=== PATIENT | female | born 1950 | race Caucasian/White ===

== ENCOUNTER 2017-01-28 05:35 | Inpatient (IN) | payer OTHER ==
--- NOTE | 2017-01-09 12:36 | PAT Medication Instructions ---
Service Date Jan 09, 2017. Current Home Medication List Calcium Carbonate-Cholecalcife (Caltrate 600+D), 1 TAB PO BID Cyclobenzaprine Hcl (Flexeril), 5-10 MG PO TID PRN for PRN Dorzolamide Hcl-Timolol Maleat (Cosopt Oph), 1 DROPS OP BID Mrwgzhuicri-Uoasikuzfze-Yeu C- (Glucosamine Chondroitin), 1 TAB PO BID Hydrochlorothiazide (Hydrochlorothiazide), 1 TAB PO QAM Latanoprost (Xalatan 0.005% Oph Kelly), 1 DROPS OP HS Loperamide Hcl (Imodium), 2 MG PO PRN Meloxicam (Mobic), 15 MG PO QAM Modafinil (Provigil), 200 MG PO QAM Modafinil (Provigil), 100 MG PO NOON PRN for PRN Multivitamin (Multivitamin), 1 TAB PO QAM Potassium Ext Rel (Klor-Con), 20 MEQ PO QAM [Allergy Relief Otc], 1 TAB PO PRN Medication Instructions For Your Scheduled Surgery - Hold the following medications 2 weeks prior to surgery: Bhjiqzqziyg-Qgurgjkuhmy-Eco C- (Glucosamine Chondroitin), 1 TAB PO BID - Hold the following medications PER YOUR SURGEON'S INSTRUCTIONS: Meloxicam (Mobic), 15 MG PO QAM - Hold the following medications the morning of surgery: Calcium Carbonate-Cholecalcife (Caltrate 600+D), 1 TAB PO BID Cyclobenzaprine Hcl (Flexeril), 5-10 MG PO TID PRN for PRN Modafinil (Provigil), 200 MG PO QAM Modafinil (Provigil), 100 MG PO NOON PRN for PRN Loperamide Hcl (Imodium), 2 MG PO PRN Multivitamin (Multivitamin), 1 TAB PO QAM Potassium Ext Rel (Klor-Con), 20 MEQ PO QAM Hydrochlorothiazide (Hydrochlorothiazide), 1 TAB PO QAM [Allergy Relief Otc], 1 TAB PO PRN - Take the following medications the morning of surgery: Dorzolamide Hcl-Timolol Maleat (Cosopt Oph), 1 DROPS OP BID (AND BRING WITH YOU THE MORNING OF THE SURGERY) - Take the following medications as scheduled the night before surgery: Latanoprost (Xalatan 0.005% Oph Kelly), 1 DROPS OP HS (AND BRING WITH YOU THE MORNING OF THE SURGERY) Dorzolamide Hcl-Timolol Maleat (Cosopt Oph), 1 DROPS OP BID Calcium Carbonate-Cholecalcife (Caltrate 600+D), 1 TAB PO BID [Allergy Relief Otc], 1 TAB PO PRN (IF NEEDED) If you have any questions please call us at [phone] or [phone] or [phone]
--- NOTE | 2017-01-09 13:24 | DIAGNOSTIC IMAGING REPORT ---
CHEST PREADMISSION(PA/LAT) CLINICAL HISTORY: PAT preoperative evaluation COMPARISON STUDY: No previous studies for comparison. FINDINGS: The bones soft tissues and hemidiaphragms are normal. The cardiomediastinal silhouette is normal. The lungs are clear. The pulmonary vasculature is normal. IMPRESSION: Negative chest. The above report was generated using voice recognition software. It may contain grammatical, syntax or spelling errors. Electronically signed by: Dawson Garcia M.D. 01/09/2017 1:23 PM Dictated Date/Time: 01/09/2017 1:23 PM
[2017-01-09 13:27] LABS: BASO % 0.9 %; BASO ABS # 0.06 K/uL (0-0.2); COMPLETE YES; HEMATOCRIT 40.6 % (37-47); IG% 0.3 %; LYMPH % 26.1 %; LYMPH ABS # 1.72 K/uL (1.2-3.4); MEAN CELL VOLUME 91.2 fL (80-100); MEAN CORPUSCULAR HEMOGLOBIN 30.8 pg (25-34); MEAN CORPUSCULAR HGB CONC 33.7 g/dl (32-36); MEAN PLATELET VOLUME 9.2 fL (7.4-10.4); MONO % 8.6 %; NEUT % 62.1 %; PLATELET COUNT 351 K/uL (130-400); RED BLOOD COUNT 4.45 M/uL (4.2-5.4)
[2017-01-09 13:38] LABS: URINE APPEARANCE CLEAR (CLEAR); URINE BILIRUBIN NEG (NEG); URINE COLOR YELLOW; URINE NITRITE NEG (NEG); URINE PH 6.5 (4.5-7.5); UROBILINOGEN NEG (NEG); ZZUR CULT IF INDIC CLEAN CATCH YES
[2017-01-09 13:48] LABS: BUN/CREATININE RATIO 11.4 (10-20); CALCIUM 9.6 mg/dl (8.5-10.1); CREATININE 0.65 mg/dl (0.60-1.20); POTASSIUM 3.9 mmol/L (3.5-5.1)
[2017-01-09 13:52] LABS: MANUAL MICROSCOPIC REQUIRED? NO; REVIEW REQ? NO
[~2017-01-28] VITALS: Ht 160 cm; Wt 77.6 kg
[2017-01-28] VITALS (10 sets, daily range): BP systolic 103–142; BP diastolic 67–89; PULSE 70–85; TEMP 36.3–36.6; O2SAT 96–100; Ht 160 cm; Wt 77.6 kg
[~2017-01-28 05:35] MED LIST: ALLERGY RELIEF OTC PO; CALC-354 PO; CYCL5TAB PO; DORZ1SOL6 OP; GLUCTAB7 PO; HYDR12.55 PO; IMD/2 PO; LATA0.5S OP; MELO7.5T5 PO; MODA100T17 PO; MODA1TAB PO; MULT-506 PO; POTA20TA16 PO
[2017-01-28] MEDS ORDERED: CEFAZOLIN 1000MG/55 ML D5W IV SCH (06:00)
[2017-01-28] MEDS ORDERED: LACTATED RINGER'S 1000ML 1,000 ML IV SCH ×2 (06:00→07:39)
[2017-01-28] MEDS ORDERED: FLUT0.15 INH (06:01)
[2017-01-28] MEDS ORDERED: ACET1TAB84 PO (06:14)
[2017-01-28] MEDS ORDERED: ATROPINE SULFATE 0.1 MG/ML 5ML SYR IV PRN (06:45)
[2017-01-28] MEDS ORDERED: PROMETHAZINE HCL INJ 12.5 MG in SODIUM CHLORIDE 0.9% 50ML 50 ML IV PRN ×2 (06:45→10:15)
[2017-01-28] MEDS ORDERED: EpHEDrine SULFATE INJ 50 MG/ML AMP IV PRN (06:45)
[2017-01-28] MEDS ORDERED: ONDANSETRON INJ 2 MG/ML 2 ML VIAL IV PRN ×2 (06:45→10:15)
[2017-01-28] MEDS ORDERED: FENTANYL CITRATE INJ 50 MCG/1 ML 2 ML VIAL IV PRN (06:45)
[2017-01-28] MEDS ORDERED: HYDROmorphone INJ 1 MG/ML SYR IV PRN (06:45)
[2017-01-28] MEDS ORDERED: GLYCOPYRROLATE INJ 0.2 MG/ML VIAL ONE (06:53)
[2017-01-28] MEDS ORDERED: MIDAZOLAM HCL 1 MG/ML 2ML VIAL ONE (06:53)
[2017-01-28] MEDS ORDERED: PROPOFOL IV EMULSION 10 MG/ML 20 ML VIAL IV ONE (06:53)
[2017-01-28] MEDS ORDERED: ROCURONIUM BROMIDE 10 MG/ML 5 ML VIAL IV ONE (06:53)
[2017-01-28] MEDS ORDERED: LIDOCAINE HCL 2% 2 ML VIAL (20MG/ML) ONE (06:53)
[2017-01-28] MEDS ORDERED: NEOSTIGMINE METHYLSULFATE 1 MG/ML 10ML VIAL ONE (06:53)
[2017-01-28] MEDS ORDERED: FENTANYL CITRATE INJ 50 MCG/1 ML 2 ML VIAL ONE (06:53)
[2017-01-28] MEDS ORDERED: DEXAMETHASONE SOD INJ 4 MG/ML VIAL ONE (06:53)
[2017-01-28] MEDS ORDERED: HYDROmorphone INJ 2 MG/ML SYR/VIAL ONE (06:54)
[2017-01-28] MEDS ORDERED: BACITRACIN 50000 UNIT VIAL ONE (06:58)
[2017-01-28] MEDS ORDERED: BUPIVACAINE/EPINEPHRINE 0.5% MPF 1:200,000 30 ML VIAL ONE (06:58)
[2017-01-28] MEDS ORDERED: CLINDAMYCIN 600 MG/54 ML D5W IV ONE (06:59)
--- NOTE | 2017-01-28 07:26 | History & Physical Bridge Note ---
H&P Re-Evaluation Bridge Note: I have examined the patient, reviewed the History & Physical and in the interval since the performance of the History & Physical I have noted the following changes of clinical significance: No changes noted
--- NOTE | 2017-01-28 07:28 | History and Physical ---
History & Physical Date Jan 28, 2017. Chief Complaint Back and leg pain History of Present Illness The patient is a 66 year old female with complaints of back and leg pain Additional History Hepatic Disease: No Endocrine Disorder: No Kidney Disease: No Hypertension: Yes Heart Disease: No Bleeding Tendencies: No Infectious Diseases: No Allergies Coded Allergies: Penicillins (Verified Allergy, Unknown, RASH, 01/28/17) Home Medications Scheduled Calcium Carbonate-Cholecalcife (Caltrate 600+D), 1 TAB PO BID Dorzolamide Hcl-Timolol Maleat (Cosopt Oph), 1 DROPS OP BID Fluticasone Propionate (Nasal) (Flonase Allergy Relief), 1 SPRAY INH DAILY Whnhtfcmedw-Ygnofmxdgqj-Vik C- (Glucosamine Chondroitin), 1 TAB PO BID Hydrochlorothiazide (Hydrochlorothiazide), 1 TAB PO QAM Latanoprost (Xalatan 0.005% Oph Kelly), 1 DROPS OP HS Loperamide Hcl (Imodium), 2 MG PO PRN Meloxicam (Mobic), 15 MG PO QAM Modafinil (Provigil), 200 MG PO QAM Multivitamin (Multivitamin), 1 TAB PO QAM Potassium Ext Rel (Klor-Con), 20 MEQ PO QAM [Allergy Relief Otc], 1 TAB PO PRN Scheduled PRN Acetaminophen (Tylenol Arthritis Ext Rel), 650 MG PO Q8H PRN for Pain Cyclobenzaprine Hcl (Flexeril), 5-10 MG PO TID PRN for PRN Modafinil (Provigil), 100 MG PO NOON PRN for PRN Physical Examination Skin: warm/dry, no rash Eyes: normal inspection, EOMI, sclerae normal ENT: normal ENT inspection, pharynx normal Head: normocephalic, atraumatic Neck: supple, no adenopathy, trachea midline Respiratory/Chest: lungs clear, normal breath sounds, no respiratory distress Cardiovascular: regular rate, rhythm, no edema, no murmur Abdomen / GI: normal bowel sounds, non tender Back: normal inspection Extremities: normal inspection, normal range of motion Neurologic/Psych: no motor/sensory deficits, alert, normal reflexes, oriented x 3 Diagnosis Lumbar spinal stenosis Plan of Treatment Lumbar decompression fusion L4 to S1
[2017-01-28] MEDS ORDERED: SCOPOLAMINE 1.5 MG TDSY TD ONE (07:31)
[2017-01-28] MEDS ORDERED: SCOPOLAMINE 1.5 MG TDSY TD SCH (07:45)
[2017-01-28] MEDS ORDERED: NURSING VERBAL MED ORDER ONE ×2 (07:45→14:00)
[2017-01-28] MEDS ORDERED: EpHEDrine SULFATE 50MG/5ML SYR ONE (08:50)
[2017-01-28] MEDS ORDERED: PHENYLEPHRINE 100MCG/ML 5ML SYR ONE (08:50)
[2017-01-28] MEDS ORDERED: FLOSEAL HEMOSTATIC MATRIX 10ML TOP ONE (10:02)
[2017-01-28] MEDS ORDERED: SODIUM CHLORIDE 0.9% 1000ML 1,000 ML IV SCH (10:03)
--- NOTE | 2017-01-28 10:11 | [facility] Operative Report ---
Operative Report Operative Date Jan 28, 2017. Pre-Operative Diagnosis Lumbar spinal stenosis Post-Operative Diagnosis Lumbar spinal stenosis Procedure(s) Performed #1 lumbar decompression medial facetectomies foraminotomies L3 4 L4 5 L5-S1. #2 posterior spinal fusion L4 5 L5-S1. #3 placement posterior segmental instrumentation L4 5 L5-S1. #4 interbody fusion L4 5. #5 placement peek Cage 14 x 26 mm at L4 5 #6 placement of locally harvested morcellized autograft posterior gutters. #7 placement of ostial amp bone graft in the interbody space and posterior lateral gutters. Surgeon Dr. Perez Love [facility] Agent Surgeon(s) Naomi Long PA-C Estimated Blood Loss 150mL Findings Severe spinal stenosis Specimens None per surgeon Description of Procedure Patient was met with preoperatively case discussed all questions addressed. After informed consent patient was taken operative suite and intubated and placed in a prone position the [place] table top Jed frame. All bony prominences well-padded eyes inspected to ensure no external pressure. Lumbar spine was then prepped and draped in the normal sterile fashion. Sharp dissection with the assistance of Bovie cautery was performed onto an exposing the lamina and transverse processes of L4 L5 and the sacral alar bilaterally. From a caudal to cephalad fashion complete laminectomy of L5 L4 and partial laminectomy of L3 was performed addressing severe central lateral recess and foraminal stenosis. Pedicle screws were then placed in L4 5 and S1 levels bilaterally. Probably size frances was then placed. Through a transforaminal approach on the right complete discectomy of L4 5 was performed and plate created to subcortical bleeding bone and a 14 x 26 mm peek cage filled with ostial amp tapped in position. The rods were then locked and final position bilaterally. Transverse processes of L4-L5 and the sacral alar were then burred to subcortical bleeding bone. Ostial amp locally harvested morcellized autograft was placed and posterior gutters. 15 round ELISA drain inserted. Incision closed with 1 Vicryl fascia 2-0 Vicryl subcutaneous tediously 4 Monocryl for final skin closure Steri-Strip sterile dressing was placed. Patient awakened taken PACU stable condition. Please note Naomi Juarez was present at the entire procedure involved in patient positioning complex portions of the surgery and final skin closure. I attest to the content of the Intraoperative Record and any orders documented therein. Any exceptions are noted below.
[2017-01-28] MEDS ORDERED: DO NOT ADMINISTER FLU VACCINE PRN ×3 (10:15)
[2017-01-28] MEDS ORDERED: ALUMINUM/MAGNESIUM SUSP 30 ML UDC PO PRN (10:15)
[2017-01-28] MEDS ORDERED: BISACODYL 10 MG SUPP PR PRN (10:15)
[2017-01-28] MEDS ORDERED: hydrOXYzine HCL 25 MG TAB PO PRN (10:15)
[2017-01-28] MEDS ORDERED: DO NOT ADMINISTER PNEUMOCOCCAL VACCINE PRN ×2 (10:15)
[2017-01-28] MEDS ORDERED: ACETAMINOPHEN IV 100 ML IV PRN (10:15)
[2017-01-28] MEDS ORDERED: ACETAMINOPHEN 500 MG TAB PO PRN (10:15)
[2017-01-28] MEDS ORDERED: SOD PHOSPHATE/SOD BIPHOSPHATE ENEMA 132 ML BTL PR PRN (10:15)
[2017-01-28] MEDS ORDERED: LORAZEPAM 0.5 MG TAB PO PRN (10:15)
[2017-01-28] MEDS ORDERED: NALOXONE HCL 0.4 MG/1 ML VIAL/CARP IV PRN ×2 (10:15)
[2017-01-28] MEDS ORDERED: METOCLOPRAMIDE HCL INJ 5 MG/ML 2 ML VIAL IV PRN (10:15)
[2017-01-28] MEDS ORDERED: LORAZEPAM INJ 0.5 MG in SYRINGE 0.75 ML IV PRN (10:15)
[2017-01-28] MEDS ORDERED: MAGNESIUM HYDROXIDE SUSP 30 ML UDC PO PRN (10:15)
[2017-01-28] MEDS ORDERED: FAMOTIDINE 20 MG TAB PO PRN (10:15)
--- NOTE | 2017-01-28 10:25 | DIAGNOSTIC IMAGING REPORT ---
INTRAOPERATIVE RADIOGRAPHS CLINICAL HISTORY: L4-S1 spinal fusion. Fluoroscopy time: 21 seconds. FINDINGS: 2 spot fluoroscopic views of the lumbar spine are presented. There is evidence of discectomy at L4-L5 with laminectomy and posterior fusion from L4 -S1. Interpedicular screws are present at all levels. The orthopedic hardware appears intact. IMPRESSION: Intraoperative images from L4 -S1 spinal fusion as above. Electronically signed by: Erasmo Guajardo M.D. 01/28/2017 10:23 AM Dictated Date/Time: 01/28/2017 10:23 AM
[2017-01-28] MEDS ORDERED: HYDROmorphone HCL 0.5MG/ML 50 ML CASSETTE ONE (10:31)
--- NOTE | 2017-01-28 11:13 | Anesthesiology Progress Note ---
Anesthesia Post Op Note Date & Time Jan 28, 2017 at 11:12 Vital Signs Pain Intensity: 3 Vital Signs Past 12 Hours Date Time Temp Pulse Resp B/P (MAP) Pulse Ox O2 Delivery O2 Flow Rate FiO2 01/28/17 11:06 36.1 65 18 133/83 100 Nasal Cannula 4 01/28/17 10:24 36.2 86 20 125/77 96 Mask 5 01/28/17 06:02 36.4 79 22 142/89 97 Room Air Notes Mental Status: alert / awake / arousable, participated in evaluation Pt Amnestic to Procedure: Yes Nausea / Vomiting: adequately controlled Pain: adequately controlled Airway Patency, RR, SpO2: stable & adequate BP & HR: stable & adequate Hydration State: stable & adequate Anesthetic Complications: no major complications apparent
[2017-01-28] MEDS: HYDROmorphone HCL 0.5MG/ML 50 ML CASSETTE IV PRN ×3 (12:26→19:23)
[2017-01-28] MEDS: LACTATED RINGER'S 1000ML 1,000 ML IV SCH ×3 (13:47→21:23)
[2017-01-28] MEDS: DEXAMETHASONE INJ 6 MG in SYRINGE 0 ML IV SCH ×2 (15:47→23:29)
[2017-01-28] MEDS: CLINDAMYCIN IV 600 MG in DEXTROSE 5% 50ML 50 ML IV SCH ×2 (15:47→23:29)
[2017-01-28] MEDS: CHECK SCOPOLAMINE PATCH PLACEMENT SCH ×2 (15:48→23:30)
[2017-01-28] MEDS: DOCUSATE SODIUM/SENNA 50/8.6MG TAB PO SCH (20:15)
[2017-01-28] MEDS: DORZOLAMIDE/TIMOLOL 22.3/6.8MG/ML 10 ML BTL OP SCH (20:16)
[2017-01-28] MEDS: LATANOPROST 0.005% OP SOLN 2.5 ML BTL OP SCH (20:16)
[2017-01-29 02:50] VITALS: BP 115/73; PULSE 87; TEMP 36.6; O2SAT 95
[2017-01-29] MEDS ORDERED: DC PCA SCH (06:00)
[2017-01-29] MEDS ORDERED: HYDROmorphone INJ 0.5 MG/0.5 ML SYR IV PRN (06:00)
[2017-01-29] MEDS ORDERED: HYDROmorphone INJ 1 MG/ML SYR IV PRN (06:00)
[2017-01-29] MEDS ORDERED: NURSING DECISION MEDICATION ORDER SCH (06:15)
[2017-01-29 06:26] LABS: BASO % 0.1 %; BASO ABS # 0.01 K/uL (0-0.2); COMPLETE YES; HEMATOCRIT 35.1 % (37-47); IG% 0.3 %; LYMPH % 6.4 %; LYMPH ABS # 1.18 K/uL (1.2-3.4); MEAN CELL VOLUME 91.4 fL (80-100); MEAN CORPUSCULAR HEMOGLOBIN 30.7 pg (25-34); MEAN CORPUSCULAR HGB CONC 33.6 g/dl (32-36); MONO % 3.1 %; NEUT % 90.1 %; PLATELET COUNT 310 K/uL (130-400); RED BLOOD COUNT 3.84 M/uL (4.2-5.4); WHITE BLOOD COUNT 18.49 K/uL (4.8-10.8)
[2017-01-29 06:59] LABS: BUN/CREATININE RATIO 12.5 (10-20); CALCIUM 8.6 mg/dl (8.5-10.1); CREATININE 0.62 mg/dl (0.60-1.20); POTASSIUM 4.1 mmol/L (3.5-5.1)
[2017-01-29] MEDS: DEXAMETHASONE INJ 6 MG in SYRINGE 0 ML IV SCH (07:04)
[2017-01-29] MEDS ORDERED: RXC5 PO (07:37)
--- NOTE | 2017-01-29 07:38 | Discharge Instructions ---
Discharge Instructions Date of Service Jan 29, 2017. Admission Reason for Admission: Lumbar Spinal Stenosis Discharge Discharge Diagnosis / Problem: lumbar spinal stenosis Discharge Goals Goal(s): Improve function Activity Recommendations Activity Limitations: per Instructions/Follow-up section . Instructions / Follow-Up Instructions / Follow-Up ACTIVITY RECOMMENDATIONS: SELF CARE INSTRUCTIONS AFTER THORACIC/LUMBAR FUSIONS 1. You may walk to your tolerance. It is good exercise for your legs and back. Expect some back and intermittent leg aches and pains. 2. You may perform "counter-top" level activities (make a sandwich, idalia with a project, etc.). 3. No bending or lifting of more than 10 pounds or back twisting of any nature (roll like a log when turning in bed). 4. You may ride in a car for 20-30 minutes at a time. No driving until after your first visit with your doctor. 5. Frequent changes of position and restricting sitting to 30 minutes at a time will help limit the amount of back spasms and stiffness you may experience. 6. You may discontinue the use of ambulatory aids (cane, crutches, etc.) once your strength and confidence allow. 7. You may bushing and broach operator the shower and let water strike your incision when you arrive home at least once daily. Do not take a tub bath, sit in a hot tub or go into a swimming pool until after your first recheck in the office. SPECIAL CARE INSTRUCTIONS: VERY IMPORTANT TO READ AND REVIEW A. Your surgical incision has been closed with a cosmetic suture under the skin that will dissolve in about 6 weeks. In 14 days, you can use a pair of clean scissors and cut the suture that is left outside of the skin at the ends of your incision. 1. The small skin tapes can be removed 7 days after surgery if they have not fallen off by that point. 2. You may keep the wound open to air as much as possible to promote healing after post-op day number 5 unless told otherwise by your doctor. 3. If you think the wound looks like it is becoming infected (redness or worsening drainage) and/or you are experiencing fever, chill or worsening back pain and muscle spasms, contact the office so that we may evaluate you as soon as possible. B. Complications are uncommon, but please contact us if you have any signs or symptoms of: 1. wound infection (fever higher than 102.5 degrees F, redness, separation of wound, drainage, or increasing pain from the incision) 2. blood clots in legs (pain, swelling, redness and warmth in legs) 3. urinary tract infection (fever higher than 102.5 degrees F, burning upon urination or increased frequency of urination) 4. nerve problems (inability to walk on your toes or heels, numbness, loss of bowel or bladder control) 5. any other symptoms that concern you C. Please call the office at if you have any concerns or questions about your operation or recovery. D. No smoking! Smoking drastically decreases the chance of a solid fusion. E. Do not take any anti-inflammatory medications (Indocin, Advil, Motrin, Aspirin, Naprosyn, etc.) as these may inhibit the chance of a solid fusion. Tylenol is okay to take for pain. MANAGING PAIN AFTER SPINAL SURGERY 1. Narcotic medication is intended for short-term use and will be provided for surgical pain. Surgical pain usually lasts for a period of 4-6 weeks. Narcotic medication includes Percocet, Vicodin, Darvocet, Tylenol #3 or Lortab. 2. Longer-term pain is more appropriately treated with non-narcotic medication such as Tylenol ES. 3. Muscle spasm is not appropriately treated with narcotics. Muscle relaxers such as Soma, Flexeril or Skelaxin can be used along with Tylenol ES. 4. Remember that we all live with some "aches and pains". This is not unusual or uncommon after an injury or as we get older. a. Back pain is expected and may include muscle spasms for 4 to 6 weeks after surgery. The pain should gradually improve. If the pain worsens for no apparent reason, please contact the office. b. Intermittent leg pain may also be experienced and should not be concerned about unless it worsens for no apparent reason. If so, please contact the office. 5. We will provide appropriate medication within the normal guidelines of their prescribed use. We will also be very cautious and aware of potential abuse and extended duration of patients' medication needs. a. Pain medications are for your comfort and to assist with sleep and rest so that the tissue can heal. They are not provided in order to return to normal activity and should not be used through the day. To do so or worsening pain at night can result from ongoing tissue damage and development of tolerance to the prescribed medicine. 6. Please allow 2-3 days to process refills. Prescriptions will not be mailed but must be picked up at the office. FOLLOW UP VISIT: Keep your scheduled follow-up appointment. Any questions, please call the office at . Current Hospital Diet Patient's current hospital diet: Regular Diet Discharge Diet Recommended Diet: Regular Diet Procedures Procedures Performed: #1 lumbar decompression medial facetectomies foraminotomies L3 4 L4 5 L5-S1. #2 posterior spinal fusion L4 5 L5-S1. #3 placement posterior segmental instrumentation L4 5 L5-S1. #4 interbody fusion L4 5. #5 placement peek Cage 14 x 26 mm at L4 5 #6 placement of locally harvested morcellized autograft posterior gutters. #7 placement of ostial amp bone graft in the interbody space and posterior lateral gutters. Pending Studies Studies pending at discharge: no Medical Emergencies . Who to Call and When: Medical Emergencies: If at any time you feel your situation is an emergency, please call 911 immediately. . Non-Emergent Contact Non-Emergency issues call your: Primary Care Provider . "Provider Documentation" section prepared by Perez Love. . VTE Core Measure Inpt VTE Proph given/why not?: Lee Durand, SCD's
[2017-01-29] MEDS: CHECK SCOPOLAMINE PATCH PLACEMENT SCH ×3 (07:57→23:05)
[2017-01-29 08:05] VITALS: BP 121/77; PULSE 72; TEMP 36.5; O2SAT 98
[2017-01-29] MEDS: FLUTICASONE PROPIONATE NA SPR 16 GM BTL SCH (08:50)
[2017-01-29] MEDS: DORZOLAMIDE/TIMOLOL 22.3/6.8MG/ML 10 ML BTL OP SCH ×2 (08:50→21:05)
[2017-01-29] MEDS: POTASSIUM CHLORIDE 20 MEQ TABCR PO SCH (08:51)
[2017-01-29] MEDS: MODAFINIL 100 MG TAB PO SCH (08:53)
[2017-01-29] MEDS: OXYCODONE HCL IR 5 MG TAB (IMMEDIATE RELEASE) PO PRN ×3 (09:54→21:09)
[2017-01-29 11:10] VITALS: BP 123/74; PULSE 77; TEMP 36.5; O2SAT 97
[2017-01-29] MEDS ORDERED: MODAFINIL 100 MG TAB PO PRN (12:00)
--- NOTE | 2017-01-29 13:34 | Progress Note ---
Progress Note Date of Service Jan 29, 2017. Progress Note Back pain is controlled. Leg pain is markedly improved. Patient has no complaints at this time. Vital signs are stable ELISA drain decreasing appropriately. On exam she is interior bedside has excellent strength testing. Assessment status post lumbar decompression fusion per plan at this time will continue physical therapy advance her bowel regimen consider home tomorrow.
[2017-01-29 14:58] VITALS: BP 130/76; PULSE 92; O2SAT 99
[2017-01-29 15:17] VITALS: BP 104/66; PULSE 80; TEMP 36.5; O2SAT 99
[2017-01-29] MEDS: DOCUSATE SODIUM/SENNA 50/8.6MG TAB PO SCH (21:05)
[2017-01-29] MEDS: LATANOPROST 0.005% OP SOLN 2.5 ML BTL OP SCH (21:05)
[2017-01-29 22:51] VITALS: BP 115/76; PULSE 80; TEMP 36.7; O2SAT 97
[2017-01-30] MEDS: OXYCODONE HCL IR 5 MG TAB (IMMEDIATE RELEASE) PO PRN ×4 (04:13→20:39)
[2017-01-30] MEDS: POLYETHYLENE (MIRALAX) 17 GM PACK PO SCH ×4 (05:55→23:32)
[2017-01-30 07:16] VITALS: BP 125/73; PULSE 76; TEMP 36.4; O2SAT 97
[2017-01-30] MEDS: CHECK SCOPOLAMINE PATCH PLACEMENT SCH ×2 (07:47→13:20)
[2017-01-30] MEDS: FLUTICASONE PROPIONATE NA SPR 16 GM BTL SCH (08:52)
[2017-01-30] MEDS: DORZOLAMIDE/TIMOLOL 22.3/6.8MG/ML 10 ML BTL OP SCH ×2 (08:52→20:38)
[2017-01-30] MEDS: POTASSIUM CHLORIDE 20 MEQ TABCR PO SCH (08:53)
[2017-01-30] MEDS: MODAFINIL 100 MG TAB PO SCH (08:59)
--- NOTE | 2017-01-30 12:23 | Progress Note ---
Progress Note Date of Service Jan 30, 2017. Progress Note Back pain is controlled leg pain markedly improved. Vital signs stable. ELISA drain decreasing appropriate. On exam she is good strength testing appears comfortable. Assessment status post lumbar decompression fusion replant this time we anticipate possible home tomorrow.
[2017-01-30] MEDS ORDERED: KETOROLAC TROMETHAMINE 15 MG/ML VIAL IV. PRN (12:30)
[2017-01-30] MEDS ORDERED: NURSING VERBAL MED ORDER ONE (13:30)
[2017-01-30 15:34] VITALS: BP 122/78; PULSE 89; TEMP 36.5; O2SAT 99
[2017-01-30] MEDS: LATANOPROST 0.005% OP SOLN 2.5 ML BTL OP SCH (20:38)
[2017-01-30] MEDS: DOCUSATE SODIUM/SENNA 50/8.6MG TAB PO SCH (20:39)
[2017-01-30 23:08] VITALS: BP 93/54; PULSE 91; TEMP 37; O2SAT 95
[2017-01-31] MEDS: POLYETHYLENE (MIRALAX) 17 GM PACK PO SCH (05:52)
[2017-01-31] MEDS: OXYCODONE HCL IR 5 MG TAB (IMMEDIATE RELEASE) PO PRN ×2 (05:56→10:29)
[2017-01-31 07:39] VITALS: BP 99/66; PULSE 93; TEMP 36.8; O2SAT 95
[2017-01-31] MEDS: FLUTICASONE PROPIONATE NA SPR 16 GM BTL SCH (08:54)
[2017-01-31] MEDS: DORZOLAMIDE/TIMOLOL 22.3/6.8MG/ML 10 ML BTL OP SCH (08:55)
[2017-01-31] MEDS: MODAFINIL 100 MG TAB PO SCH (08:56)
[2017-01-31] MEDS: POTASSIUM CHLORIDE 20 MEQ TABCR PO SCH (08:57)
[2017-01-31 10:44] VITALS: BP 99/66; PULSE 93; TEMP 36.8; O2SAT 95
--- NOTE | 2017-02-03 13:33 | Discharge Summary ---
Orthopedic Discharge Summary Admission Date/Reason Jan 28, 2017 at 10:06 Lumbar Spinal Stenosis. Discharge Date/Disposition Jan 31, 2017 Home Diagnosis Principal Diagnosis: Lumbar spinal stenosis Procedure(s) Performed Posterior lumbar decompression/fusion L4-S1 Medication Reconciliation New Medications: Oxycodone HCl (Oxycodone HCl) 5 Mg Tab 5-10 MG PO Q4H PRN for Moderate - severe pain for 30 Days, #60 TAB Continued Medications: Acetaminophen (Tylenol Arthritis Ext Rel) 650 Mg Cplt 650 MG PO Q8H PRN for Pain, CAP Calcium Carbonate-Cholecalcife (Caltrate 600+D) 1 Tab Tab 1 TAB PO BID Cyclobenzaprine Hcl (Flexeril) 5 Mg Tab 5-10 MG PO TID PRN for PRN, TAB PRN Dorzolamide Hcl-Timolol Maleat (Cosopt Oph) 1 Kelly Kelly 1 DROPS OP BID, #10 ML 3 Refills Fluticasone Propionate (Nasal) (Flonase Allergy Relief) 50 Mcg/Act Spr 1 SPRAY INH DAILY Nzeexjxmkds-Yaytqopfjkx-Zbw C- (Glucosamine Chondroitin) 1 Tab Tab 1 TAB PO BID Hydrochlorothiazide (Hydrochlorothiazide) 12.5 Mg Tab 1 TAB PO QAM for 90 Days, #90 TAB 3 Refills Latanoprost (Xalatan 0.005% Oph Kelly) 0.005 % Kelly 1 DROPS OP HS, #2.5 ML 3 Refills Loperamide Hcl (Imodium) 2 Mg Cap 2 MG PO PRN, CAP Modafinil (Provigil) 200 Mg Tab 200 MG PO QAM, TAB Modafinil (Provigil) 100 Mg Tab 100 MG PO NOON PRN for PRN, TAB Multivitamin (Multivitamin) Tab 1 TAB PO QAM, TAB Potassium Ext Rel (Klor-Con) 20 Meq Tabcr 20 MEQ PO QAM, TAB [Allergy Relief Otc] () 1 TAB PO PRN Discontinued Medications: Meloxicam (Mobic) 7.5 Mg Tab 15 MG PO QAM, TAB Admission Physical Exam As per Admitting History & Physical. Hospital Course Pt had an uneventful hospital course. Lab values were stable. Pain controlled. She progressed nicely with physical therapy. She was discharged home on POD #3 Discharge Instructions ACTIVITY RECOMMENDATIONS: SELF CARE INSTRUCTIONS AFTER THORACIC/LUMBAR FUSIONS 1. You may walk to your tolerance. It is good exercise for your legs and back. Expect some back and intermittent leg aches and pains. 2. You may perform "counter-top" level activities (make a sandwich, idalia with a project, etc.). 3. No bending or lifting of more than 10 pounds or back twisting of any nature (roll like a log when turning in bed). 4. You may ride in a car for 20-30 minutes at a time. No driving until after your first visit with your doctor. 5. Frequent changes of position and restricting sitting to 30 minutes at a time will help limit the amount of back spasms and stiffness you may experience. 6. You may discontinue the use of ambulatory aids (cane, crutches, etc.) once your strength and confidence allow. 7. You may manager linux the shower and let water strike your incision when you arrive home at least once daily. Do not take a tub bath, sit in a hot tub or go into a swimming pool until after your first recheck in the office. SPECIAL CARE INSTRUCTIONS: VERY IMPORTANT TO READ AND REVIEW A. Your surgical incision has been closed with a cosmetic suture under the skin that will dissolve in about 6 weeks. In 14 days, you can use a pair of clean scissors and cut the suture that is left outside of the skin at the ends of your incision. 1. The small skin tapes can be removed 7 days after surgery if they have not fallen off by that point. 2. You may keep the wound open to air as much as possible to promote healing after post-op day number 5 unless told otherwise by your doctor. 3. If you think the wound looks like it is becoming infected (redness or worsening drainage) and/or you are experiencing fever, chill or worsening back pain and muscle spasms, contact the office so that we may evaluate you as soon as possible. B. Complications are uncommon, but please contact us if you have any signs or symptoms of: 1. wound infection (fever higher than 102.5 degrees F, redness, separation of wound, drainage, or increasing pain from the incision) 2. blood clots in legs (pain, swelling, redness and warmth in legs) 3. urinary tract infection (fever higher than 102.5 degrees F, burning upon urination or increased frequency of urination) 4. nerve problems (inability to walk on your toes or heels, numbness, loss of bowel or bladder control) 5. any other symptoms that concern you C. Please call the office at if you have any concerns or questions about your operation or recovery. D. No smoking! Smoking drastically decreases the chance of a solid fusion. E. Do not take any anti-inflammatory medications (Indocin, Advil, Motrin, Aspirin, Naprosyn, etc.) as these may inhibit the chance of a solid fusion. Tylenol is okay to take for pain. MANAGING PAIN AFTER SPINAL SURGERY 1. Narcotic medication is intended for short-term use and will be provided for surgical pain. Surgical pain usually lasts for a period of 4-6 weeks. Narcotic medication includes Percocet, Vicodin, Darvocet, Tylenol #3 or Lortab. 2. Longer-term pain is more appropriately treated with non-narcotic medication such as Tylenol ES. 3. Muscle spasm is not appropriately treated with narcotics. Muscle relaxers such as Soma, Flexeril or Skelaxin can be used along with Tylenol ES. 4. Remember that we all live with some "aches and pains". This is not unusual or uncommon after an injury or as we get older. a. Back pain is expected and may include muscle spasms for 4 to 6 weeks after surgery. The pain should gradually improve. If the pain worsens for no apparent reason, please contact the office. b. Intermittent leg pain may also be experienced and should not be concerned about unless it worsens for no apparent reason. If so, please contact the office. 5. We will provide appropriate medication within the normal guidelines of their prescribed use. We will also be very cautious and aware of potential abuse and extended duration of patients' medication needs. a. Pain medications are for your comfort and to assist with sleep and rest so that the tissue can heal. They are not provided in order to return to normal activity and should not be used through the day. To do so or worsening pain at night can result from ongoing tissue damage and development of tolerance to the prescribed medicine. 6. Please allow 2-3 days to process refills. Prescriptions will not be mailed but must be picked up at the office. FOLLOW UP VISIT: Keep your scheduled follow-up appointment. Any questions, please call the office at . Please refer to the electronic Patient Visit Report (Discharge Instructions) for additional information.
== END 2017-01-31 11:27 | disposition home or self-care (01) | DRG 455 ==
LOC: C.ACU 05:35 → C.3E 10:06 → ENRESERV 11:02
PROVIDERS: ADMIT Orthopaedic Surgery Orthopaedic Surgery of the Spine; ATTEND Orthopaedic Surgery Orthopaedic Surgery of the Spine
PROC: 0SG00AJ Fusion of Lumbar Vertebral Joint with Interbody Fusion Device, Posterior Approach, Anterior Column, Open Approach (ICD-10-PCS; principal; 2017-01-28 07:45)
PROC: 0SG3071 Fusion of Lumbosacral Joint with Autologous Tissue Substitute, Posterior Approach, Posterior Column, Open Approach (ICD-10-PCS; principal; 2017-01-28 07:45)
PROC: 01NB0ZZ Release Lumbar Nerve, Open Approach (ICD-10-PCS; principal; 2017-01-28 07:45)
PROC: 0ST20ZZ Resection of Lumbar Vertebral Disc, Open Approach (ICD-10-PCS; principal; 2017-01-28 07:45)
PROC: 0SG1071 Fusion of 2 or more Lumbar Vertebral Joints with Autologous Tissue Substitute, Posterior Approach, Posterior Column, Open Approach (ICD-10-PCS; principal; 2017-01-28 07:45)
DX: M48.061 Spinal stenosis, lumbar region without neurogenic claudication (principal); Z88.0 Allergy status to penicillin; I10 Essential (primary) hypertension